=== PATIENT | female | born 1990 | race Caucasian/White ===

== ENCOUNTER → 2016-12-21 01:18 | Observation (INO) ==
--- NOTE | 2016-12-21 02:59 | OB/GYN Progress Note ---
Date of Encounter: 12/21/16 Time of Encounter: 03:00 - Assessment and Plan (1) and not yet delivered in third trimester Current Visit: Yes Status: Acute (2) 37 weeks gestation of Current Visit: Yes Status: Acute (3) Decreased movement affecting management of Current Visit: Yes Status: Acute
== END | disposition home or self-care (01) ==
LOC: 1NENULAB
PROVIDERS: ADMIT Obstetrics & Gynecology; ATTEND Obstetrics & Gynecology

== ENCOUNTER 2016-12-29 04:49 | Inpatient (IN) ==
[~2016-12-29 04:49] MED LIST: Ondansetron ODT 4 MG TAB.RAPDIS SL ONE
[2016-12-29] MEDS ORDERED: Naloxone 0.4 MG/ML INJ IVP PRN (04:50)
[2016-12-29] MEDS ORDERED: Metoclopramide 10 MG/2 ML VIAL IVP PRN (04:50)
[2016-12-29] MEDS ORDERED: Famotidine 20 MG/2 ML VIAL IVP PRN (04:50)
[2016-12-29] MEDS ORDERED: Ondansetron 4 MG/2 ML VIAL IVP PRN (04:50)
[2016-12-29] MEDS ORDERED: *HR* Nalbuphine 20 MG/ML AMPUL IVP PRN (04:52)
[2016-12-29 05:01] LABS: Basophils % 0.4 %; Eosinophils # 0.2 K/mcL (0.0-0.6); Eosinophils % 2.1 %; Hemoglobin 11.8 g/dL (11.5-15.4); Immature Granulocytes % 0.7 % (0-4); Lymphocytes % 21.9 %; Mean Corpuscular HGB Conc 31.1 g/dL (31.6-35.5); Mean Corpuscular Hemoglobin 25.8 pg (28.0-33.3); Mean Corpuscular Volume 83.2 fL (83.0-100.0); Mean Platelet Volume 11.5 fL (9.4-12.4); Monocytes # 0.7 K/mcL (0.0-1.3); Neutrophils # 6.1 K/mcL (1.6-8.9); Platelet Count 161 K/mcL (140-400); Red Blood Count 4.57 M/mcL (3.82-4.97); Red Cell Distribution Width 14.4 % (11.5-14.5); Segmented Neutrophils % 66.9 %
[2016-12-29] MEDS ORDERED: Ringers Solution, Lactated 1,000 ML ONE (06:29)
--- NOTE | 2016-12-29 06:37 | Anesthesia Evaluation PreOp ---
Date of Encounter: 12/29/16 Time of Encounter: 06:33 - Past History Planned Operation: epidural, induction Cardiac History: Arrhythmia (periods of SVT happens with activity sometimes resolves on its own with rest can last couple days according to patient.), Other (hypotensive at times 90/40's did take medication for it during last preg , none for couple years, has passed out at times in past, pass out right after last epidural = no indications according with the patient she got spinal.) Pulmonary History: Denies Any Significant HX HEEL BOOM OPERATOR History: Denies Any Significant HX Other Medical History: Denies Any Significant HX Anesthesia History: No Prior Anesthetic Complications, Past Anesthesia : Yes Alcohol Use: none Drug use: none Medications and Allergies Multivitamin [Flintstones] 1 each PO DAILY 12/21/16 [History] Allergies ciprofloxacin [From Cipro] Allergy (Verified 12/29/16 04:54) Hives clindamycin Allergy (Verified 12/29/16 04:54) Hives iodine Allergy (Verified 12/29/16 04:54) Anaphylaxis Penicillins Allergy (Verified 12/29/16 04:54) Hives shellfish derived Allergy (Verified 12/29/16 04:54) Anaphylaxis Anesthesia Results - Labs 12/29/16 04:38 Anesthesia Exam - HEENT Pupil (Motor): Pupils equal Mallampati: II Teeth: Normal Oral Opening: Greater than 3 - HEEL BOOM OPERATOR LOC: Oriented HEEL BOOM OPERATOR Motor: Normal RUE, Normal LUE, Normal RLE, Normal LLE, Normal Face HEEL BOOM OPERATOR Sensory: Normal: RUE, LUE, RLE, LLE, Face - Cardiac Rhythm: Regular Murmur: None - Pulmonary Breath Sounds: bilateral Clear Respiratory Effort: Symmetrical Anesthesia Assess/Plan ASA Score: 2 (periods of SVT, hypotensive, Iodine and Shellfish anaphylaxis) Modified Lizandro Scale for Level of Consciousness: Cooperative, oriented, and tranquil Anesthetic Plan: Regional Monitoring Plan: Standard Monitors
[2016-12-29] MEDS ORDERED: Ringers Solution, Lactated 1,000 ML IVC SCH (06:45)
[2016-12-29] MEDS ORDERED: Epidural Premix (fent/bupiv) 110 ML EP ONE (07:22)
--- NOTE | 2016-12-29 09:05 | OB/GYN History & Physical ---
Date of Encounter: 12/29/16 Time of Encounter: 08:40 Assessment and Plan (1) 38 weeks gestation of Current visit: Yes Status: Chronic (2) Irregular contractions Current visit: Yes Status: Acute Patient will be allowed to ambulate and remain. She understands she is probably in early labor and will take time to progress. Augmentation after midnight if still unchanged. FHT's with baseline 115, reactive. History of Present Illness Chief complaint: contractions HPI: Ms. Douglas is a 26 year old female at 38 6/7 weeks who presented to labor and delivery last evening for contractions. Patient denies any leaking fluid. She has had some bloody show since her cervical exams through the night. Past Med Surg Social Fam HX - Past Medical History Source: patient Medical history: other (vasovagal syncope) Psychiatric history: no psych history - Past Surgical History Surgical History: other (Tonsils and adenoids, breast augmentation, bonchial cleft cyst removal.) - Social History Smoking Status: Never smoker Smokeless Tobacco Status: No Alcohol use: none Drug use: none - Family History Mother Living Status: Still Living Hx Family Cardiac Disorders: No Hx Family Respiratory Disorders: No Hx Family Cancer: No Hx Family GI Disorders: No Hx Family Genitourinary Disorders: No Hx Family Endocrine Disorder: No Hx Family Musculoskeletal Disorders: No Hx Family Neuromuscular Disorders: No Hx Family Neurologic Disorders: No Hx Family HEENT Disorders: No Hx Family Autoimmune Disorders: No Hx Family Reproductive Disorders: No Hx Family Psychosocial Disorders: No Hx Family Medical Disorders: No Obstetrical History - Pregnancies : 2 Para: 1 Livin Medications and Allergies Multivitamin [Flintstones] 1 each PO DAILY 12/21/16 [History] Allergies ciprofloxacin [From Cipro] Allergy (Verified 12/29/16 04:54) Hives clindamycin Allergy (Verified 12/29/16 04:54) Hives iodine Allergy (Verified 12/29/16 04:54) Anaphylaxis Penicillins Allergy (Verified 12/29/16 04:54) Hives shellfish derived Allergy (Verified 12/29/16 04:54) Anaphylaxis Review of System OB All systems PM: reviewed and no additional remarkable complaints except as stated Exam - Constitutional Constitutional: well developed, well nourished, no acute distress - HEENT HEENT: EOMI - Lungs Respiratory exam: CTAB - Cardiovascular Cardiovascular exam: RRR - Abdomen Abdomen: Present: bowel sounds normal, gravid, non tender - Cervix Dilation: 3 (per RN check) Effacement: 80 Station: -1 Results Result Diagrams: 12/29/16 04:38 Abnormal lab results MCH 25.8 pg (28.0-33.3) L 12/29/16 04:38 MCHC 31.1 g/dL (31.6-35.5) L 12/29/16 04:38 All other labs normal. - VTE Reasons for not Prescribing Prophylaxis: Treatment not Indicated - Low risk for VTE
[2016-12-29] MEDS ORDERED: Acetaminophen 325 MG TABLET PO PRN (17:29)
[2016-12-30] MEDS ORDERED: Epidural Premix (fent/bupiv) 110 ML EP ONE (05:41)
[2016-12-30] MEDS ORDERED: *HR* FentaNYL (PF) 100 MCG/2 ML VIAL ONE (05:41)
[2016-12-30] MEDS ORDERED: *HR* Ropivacaine/PF 0.2% 10 ML AMPUL ONE (05:41)
--- NOTE | 2016-12-30 06:10 | Anesthesia Procedures ---
Date of Encounter: 12/30/16 Time of Encounter: 05:45 Procedures: Anesthesia - Epidural/Spinal Patient ID/Chart reviewed: Yes Patient examined: Yes OB Eval: Contractions: Non-stressed pattern Consent Obtained: Yes Supplemental Oxygen: None/Room Air Site Prep: Aseptic Technique, 0.5% Chlorhexidine/Alcohol Patient position: upright Local Anesthetic: Lidocaine 1% Amount of Local Anesthetic used: 3 Touhy Needle Gauge: 18 Touhy Needle Depth (cm): 6 Catheter Depth at Skin (cm): 12 Test Dose (1.5% Lido + Epi): Volume given (mls): 3 Test Dose Result: Negative Loading Dose: 0.25% Marcaine (mls): 5 Loading Dose: Fentanyl (mcg): 100 Loading Dose: Other: 2 ml nss Loading Dose Administered: Thru Touhy Needle Infusion Med: 0.125% Bupivacaine w/ 2 mcg/ml Fentanyl Infusion Rate (mls/hr): [address]: Tegaderm Interspace Used: L3-L4 Loss of Resistance (JASON): Yes Blood: No CSF: No Paresthesia: No Procedure: strict asepsis, good jason on first pass, no parasthesias, no heme. Tolerated well, no change in FHR
--- NOTE | 2016-12-30 06:55 | OB Labor Progress Note ---
Date of Encounter: 12/30/16 Time of Encounter: 06:48 Labor Progress Note - Subjective Subjective: Patient is comfortable after her epidural. She denies any concerns. - Cervix Cervix: 5/75/-3 vertex - Heart Tones Heart Tones: category 1, baseline 125 - [place]: q 2 minutes, pitocin @ 12 mUnits/min - Interventions Interventions: AROM with clear fluid - Plan Plan: Continue with pitocin in anticipation of vaginal delivery
--- NOTE | 2016-12-30 08:29 | OB Labor Progress Note ---
Date of Encounter: 12/30/16 Time of Encounter: 08:00 Labor Progress Note - Subjective Subjective: Patient still comfortable with epidural. - Cervix Cervix: 5.5/80/0 - Heart Tones Heart Tones: 135, accel with scalp stim on insertion of IUPC catheter. Variable decelerations with contractions - [place]: q 2minutes - Interventions Interventions: IUPC placed without difficulty - Plan Plan: Continue with position changes in anticipation of vaginal delivery
--- NOTE | 2016-12-30 12:11 | OB/GYN Procedure Note ---
Delivery - Delivery Date: 12/30/16 Provider: Leandra Genao Intrapartum events: none Delivery induction: AROM, oxytocin Delivery monitor: external FHT, external uterine, internal uterine Anesthesia: epidural Estimated Blood Loss: 300 - (s) Infant A Infant Delivery Date: 12/30/16 Infant Delivery Time: 11:53 Presentation: vertex Position: LONG Route of delivery: Gender: Male Viability: Viable Pounds: 7 Ounces: 0 at 1 minute: 8 at 5 mins: 9 Shoulder Dystocia: not encountered Specimens collected: cord blood Placenta: spontaneous Cord: 3 umbilical vessels - Repair Laceration Description: Perineal - 1st Degree - Complications Delivery complications: none Delivery comments: Called to room with patient complete and +2 station. Under maternal effort she delivered a viable male weighing 7 lbs. 0 oz. and Apgars 8 and 9 at one and 5 minutes respectively over first-degree perineal laceration. Following delivery of the head there was no nuchal cord or shoulder dystocia encountered. Infant was placed on mom's abdomen. Delayed cord clamping. Cord blood was collected. Placenta delivered spontaneously, complete, and intact with three- vessel cord. First-degree perineal laceration was repaired using 3-0 Vicryl in standard fashion. Mother and recovering in the LDR in stable condition. - Disposition Mom disposition: stable in LDR [place] disposition: stable in LDR
[2016-12-30] MEDS ORDERED: Oxytocin 20 units/ LR 1000 mL 20 UNIT/1,000 ML BAG IVC SCH ×2 (14:26)
[2016-12-30] MEDS ORDERED: Oxytocin 20 units/ LR 1000 mL 20 UNIT/1,000 ML BAG IVC ONE (14:26)
[2016-12-30] MEDS ORDERED: Acetaminophen 325 MG TABLET PO PRN (14:26)
[2016-12-30] MEDS: Ibuprofen 600 MG TABLET PO PRN (14:33)
[2016-12-31 08:12] VITALS: BP 100/66
[2016-12-31] MEDS: Ibuprofen 600 MG TABLET PO PRN (08:37)
[2016-12-31] MEDS ORDERED: Prenatal Vit/FA 1 EACH TABLET PO SCH (09:00)
[2016-12-31] MEDS ORDERED: Lanolin 7 G OINT...G. TP PRN (09:57)
--- NOTE | 2016-12-31 11:05 | Discharge Summary ---
Date of Encounter: 12/31/16 Time of Encounter: 11:03 - Discharge Diagnosis (1) (normal spontaneous vaginal delivery) Priority: Primary Status: Acute Comments: Pt meeting milestones. She reports some perineal and rectal pressure since delivery with a bruise noted on her right labia. Will get H&H today. Pt declines internal vaginal exam at this time. Hematoma precautions discussed. Pt requesting discharge home this afternoon. - Discharge Medications Prescriptions: Ibuprofen [Motrin] 600 mg PO Q6HR PRN #60 tablet PRN Reason: Cramping Docusate [Colace] 100 mg PO BID #60 capsule Home Medications: Multivitamin [Flintstones] 1 each PO DAILY 12/21/16 [History] Breast Pump [BREAST PUMP] 1 each .ROUTE AD #1 each 12/31/16 [Rx] Docusate [Colace] 100 mg PO BID #60 capsule 12/31/16 [Rx] Ibuprofen [Motrin] 600 mg PO Q6HR PRN #60 tablet 12/31/16 [Rx] Lanolin [Lansinoh] 1 appl TP TID PRN #0 oint...g. 12/31/16 [Rx] Allergies/Adverse Reactions: Allergies ciprofloxacin [From Cipro] Allergy (Verified 12/29/16 04:54) Hives clindamycin Allergy (Verified 12/29/16 04:54) Hives iodine Allergy (Verified 12/29/16 04:54) Anaphylaxis Penicillins Allergy (Verified 12/29/16 04:54) Hives shellfish derived Allergy (Verified 12/29/16 04:54) Anaphylaxis Data Procedures and tests throughout hospitalization: Laboratory Tests 12/29/16 04:38 WBC 9.1 RBC 4.57 Hgb 11.8 Hct 38.0 MCV 83.2 MCH 25.8 L MCHC 31.1 L RDW 14.4 Plt Count 161 MPV 11.5 Immature Gran % 0.7 Seg Neutrophils % 66.9 Lymphocytes % 21.9 Monocytes % 8.0 Eosinophils % 2.1 Basophils % 0.4 Neutrophils # 6.1 Lymphocytes # 2.0 Monocytes # 0.7 Eosinophils # 0.2 Basophils # 0.0 Date of admission: 12/29/16 04:55 Primary care physician: Nunu Madrid CNP Consults: 12/30/16 14:26 Consult to Straightener [CONS] Routine Comment: Vaginal delivery, consult needed Discharging clinician: Jena Fonseca Anticipated date of discharge: 12/31/16 - Patient Status Disposition: Home, Self-Care Condition: Good Functional capacity at discharge: independent ambulation Overall status at discharge: patient is progressing back to baseline - Discharge Instructions Follow Up With: Leandra Genao DO [Partnered Physician] - (February 02, 2017 @ 10:45 am) Nunu Madrid, RESOLUTION AGENT [Primary Care Provider] - - Diet and Activity Activity: increase activity as tolerated Diet: advance to your usual diet Hospital Course Reason for admission: induction of labor Delivery: Episiotomy: none Laceration: 1st degree Other procedures: none complications: none Discharge diagnosis: IUP at term delivered [place] baby: male Hospital course: - Delivery Date: 12/30/16 Provider: Leandra Genao Intrapartum events: none Delivery induction: AROM, oxytocin Delivery monitor: external FHT, external uterine, internal uterine Anesthesia: epidural Estimated Blood Loss: 300 - Infant (s) Infant A Delivery Date: 12/30/16 Delivery Time: 11:53 Presentation: vertex Position: LONG Route of delivery: Gender: Male Viability: Viable Pounds: 7 Ounces: 0 at 1 minute: 8 at 5 mins: 9 Shoulder Dystocia: not encountered Specimens collected: cord blood Placenta: spontaneous Cord: 3 umbilical vessels - Repair Laceration Description: Perineal - 1st Degree - Complications Delivery complications: none - Disposition Mom disposition: home PPD#1 disposition: home with mother, Time Attestation: Total time spent providing and/or coordinating discharge services: Time Spent: Less than 30 minutes Exam - Constitutional Vitals: Temp Pulse Resp BP Pulse Ox 97.9 F 80 16 100/66 99 12/31/16 07:30 12/31/16 07:30 12/31/16 07:30 12/31/16 07:30 12/30/16 20:00 General appearance IM: A&O X 3, pleasant, no acute distress - Respiratory Respiratory exam: Present: CTAB - Cardiovascular Cardiovascular exam IM: Present: RRR, +S1, +S2 - GI/Abdominal GI/Abdominal exam IM: soft, no peritoneal signs - Rectal Rectal exam: hemorrhoids - External exam: ecchymosis Uterine Tone: Firm Uterus Position: 1 Finger Below Umbilicus - Extremities Exam Extremities exam IM: Present: pedal edema (2+ bilaterally) - Neurological Exam Neurological exam: normal gait, oriented X3 - Psychiatric Additional comments: reports good mood
[2016-12-31 11:24] LABS: Hematocrit 30.4 % (35.3-44.9)
[2016-12-31 11:29] LABS: Hemoglobin 9.7 g/dL (11.5-15.4)
== END 2016-12-31 14:00 | disposition home or self-care (01) | DRG 775 ==
LOC: 1NENULAB
PROVIDERS: ADMIT Obstetrics & Gynecology; ATTEND Obstetrics & Gynecology